=== PATIENT | male | born 1970 | race African-American/Black ===

== ENCOUNTER 2017-10-29 06:05 | Emergency (ER) | payer SELFPAY ==
[~2017-10-29] VITALS: Ht 188 cm; Wt 90.7 kg
[2017-10-29 06:11] VITALS: BP 154/89
[2017-10-29] MEDS ORDERED: LORAZEPAM 1 MG TABLET ONE (06:20)
[2017-10-29] MEDS ORDERED: LORAZEPAM 1 MG TABLET PO ONE (06:30)
== END 2017-10-29 06:40 | disposition home or self-care (01) ==
LOC: ER 06:09
DX: T40.7X1A Poisoning by cannabis (derivatives), accidental (unintentional), initial encounter (principal); T45.0X1A Poisoning by antiallergic and antiemetic drugs, accidental (unintentional), initial encounter; Y92.89 Other specified places as the place of occurrence of the external cause; F41.9 Anxiety disorder, unspecified; R45.1 Restlessness and agitation
CPT/HCPCS: 99282; A4606; Z7610